=== PATIENT | female | born 1990 | race African-American/Black ===

== ENCOUNTER 2024-03-01 18:08 | Emergency (ER) | payer SELFPAY ==
[~2024-03-01] VITALS: Ht 157.5 cm; Wt 98.8 kg
[2024-03-01 18:15] VITALS: O2SAT 99
[2024-03-01] MEDS ORDERED: IBUP-2029 MT (20:58)
[2024-03-01] MEDS ORDERED: BENZ200C52 MT (20:58)
[2024-03-01] MEDS: IBUPROFEN 600MG TABLET PO STA (21:37)
[2024-03-01 21:38] VITALS: BP 138/88; PULSE 89; RESP 18; TEMP 36.61404; O2SAT 99
== END 2024-03-01 21:40 | disposition home or self-care (01) ==
LOC: ER 18:08
DX: S29.011A Strain of muscle and tendon of front wall of thorax, initial encounter (principal); R05.1 Acute cough; R07.89 Other chest pain; Z98.890 Other specified postprocedural states; X58.XXXA Exposure to other specified factors, initial encounter; Y93.89 Activity, other specified; Y92.89 Other specified places as the place of occurrence of the external cause; Y99.8 Other external cause status
CPT/HCPCS: 71045; 99283

== ENCOUNTER 2025-02-15 00:38 | Emergency (ER) | payer SELFPAY ==
[~2025-02-15] VITALS: Ht 157.5 cm; Wt 101.0 kg
[~2025-02-15 00:38] MED LIST: BENZ200C52 MT; IBUP-1455 MT
[2025-02-15 00:42] VITALS: O2SAT 100
[2025-02-15 00:45] VITALS: BP 152/95; PULSE 96; RESP 18; TEMP 36.9; O2SAT 98
== END 2025-02-15 06:02 | disposition home or self-care (01) ==
LOC: ER 00:38
DX: R20.0 Anesthesia of skin (principal); M51.369 Other intervertebral disc degeneration, lumbar region without mention of lumbar back pain or lower extremity pain; M25.78 Osteophyte, vertebrae; I25.2 Old myocardial infarction; I87.1 Compression of vein
CPT/HCPCS: 72131; 81025; 93971; 99284

== ENCOUNTER 2025-03-05 10:02 | Emergency (ER) | payer SELFPAY ==
[~2025-03-05] VITALS: Ht 157.5 cm; Wt 100.0 kg
[2025-03-05 10:06] VITALS: O2SAT 98
[2025-03-05] MEDS ORDERED: LIDO-53 TP (12:37)
[2025-03-05] MEDS ORDERED: ALBU90AE INH (12:37)
[2025-03-05 12:50] VITALS: BP 140/89; PULSE 88; RESP 17; TEMP 36.9; O2SAT 98
[2025-03-05 14:26] LABS: INFLUENZA TYPE A Presumptive Negative (Pres. Neg.); INFLUENZA TYPE B Presumptive Negative (Pres. Neg.)
== END 2025-03-05 12:51 | disposition home or self-care (01) ==
LOC: ER 10:02
DX: J40 Bronchitis, not specified as acute or chronic (principal); G89.29 Other chronic pain; M54.9 Dorsalgia, unspecified; Z20.822 Contact with and (suspected) exposure to COVID-19
CPT/HCPCS: 71045; 81025; 87426; 87804; 99284